=== PATIENT | male | born 1975 | race Caucasian/White ===

== ENCOUNTER 2016-11-18 06:51 | Emergency (ER) | payer BC, OTHER ==
--- NOTE | 2016-11-18 07:12 | PDOC ---
History of Present Illness - General History Source: Patient Exam Limitations: No Limitations - History of Present Illness Initial Comments: 11/18/16 07:35 The patient is a 41 year old male, with a significant past medical history of paroxysmal AFIB and HTN, who presents to the emergency department with palpitations, lightheadedness and chest tightness since 2:30 am. He states that he woke up with these symptoms. He denies drinking any coffee or beer but notes that he did have a Kiya bar last night as well as a snapple ice tea. He states that this does happen to him about once a year. He also states that he had an EKG done 3 months ago that was normal and a recent nuclear stress test that was within normal limits. He notes that he takes a baby aspirin daily. The patient denies shortness of breath, headache, fever, chills, nausea, vomit, diarrhea and constipation. Allergies: Penicillin, naproxen Past surgical history: None reported Social history: Smokes hookah. No drug or alcohol use. PMD - Dr. Elpidio Mccauley Pest Control Specialist - Dr. Joya <David Grossman - Last Filed: 11/18/16 10:12> <Jay Kirby - Last Filed: 11/18/16 12:37> - General Chief Complaint: Irregular Heart Beat Stated Complaint: PALPITATIONS Time Seen by Provider: 11/18/16 07:11 Past History <David Grossman - Last Filed: 11/18/16 10:12> - Past Medical History Cardiac Disorders: Yes (atrial fibrillation) HTN: Yes - Psycho/Social/Smoking Cessation Hx Anxiety: No Suicidal Ideation: No Smoking Status: No Smoking History: Never smoked Have you smoked in the past 12 months: No Number of Cigarettes Smoked Daily: 1 Hx Alcohol Use: No Drug/Substance Use Hx: No Substance Use Type: None Hx Substance Use Treatment: No <Jay Kirby - Last Filed: 11/18/16 12:37> - Past Medical History Allergies/Adverse Reactions: Allergies Allergy/AdvReac Type Severity Reaction Status Date / Time Penicillins Allergy Mild Itching Verified 11/18/16 07:11 naproxen [From Naprosyn] Allergy Hives Verified 11/18/16 07:11 Home Medications: Ambulatory Orders Metoprolol Succinate [Toprol XL -] 25 mg PO DAILY 02/09/14 Aspirin [ASA -] 81 mg PO DAILY #30 tab.chew 02/10/14 Famotidine [Pepcid] 20 mg PO DAILY #10 tablet 05/05/15 Review of Systems - Review of Systems Constitutional: No: Chills, Fever Respiratory: No: Cough, Shortness of Breath Cardiac (ROS): Yes: Chest Pain, Lightheadedness, Palpitations. No: Edema, Syncope ABD/GI: No: Nausea, Vomiting Neurological: No: Headache All Other Systems: Reviewed and Negative <Jay Kirby - Last Filed: 11/18/16 12:37> *Physical Exam - Vital Signs Last Vital Signs Temp Pulse Resp BP Pulse Ox 98.0 F 134 H 18 118/69 100 11/18/16 07:00 11/18/16 07:00 11/18/16 07:00 11/18/16 07:00 11/18/16 07:00 - Physical Exam Comments: 11/18/16 07:35 GENERAL: The patient is awake, alert, and fully oriented, in no acute distress. HEAD: Normal with no signs of trauma. EYES: Pupils equal, round and reactive to light, extraocular movements intact, sclera anicteric, conjunctiva clear with no pallor. ENT: Ears normal, nares patent, oropharynx clear without exudates. Moist mucous membranes. NECK: Normal range of motion, supple without lymphadenopathy, JVD, or masses. LUNGS: Breath sounds equal, clear to auscultation bilaterally. No wheeze/ crackles. HEART: (+) Irregularly irregular. Tachycardia. Normal S1 and S2 without murmur or rub. ABDOMEN: Soft/nontender/nondistended. BS wnl. No guarding or rebound. No palpable masses. No hepatosplenomegaly. EXTREMITIES: Normal range of motion, no edema. No clubbing or cyanosis. No cords , erythema, or tenderness. NEUROLOGICAL: Cranial nerves II through XII grossly intact. Normal speech, normal gait. PSYCH: Normal mood, normal affect. SKIN: Warm, Dry, normal turgor, no rashes or lesions noted. <David Grossman - Last Filed: 11/18/16 10:12> Heart Score/ECG Review #1 ECG reviewed & interpreted by me at: 06:57 Compared to previous ECG there are: No significant change (sinus in the past) 11/18/16 08:01 Atrial fibrillation with rapid ventricular response at 134, nonspecific T-wave abnormality in leads 3 and aVF, otherwise no acute ischemic changes. #2 ECG reviewed & interpreted by me at: 08:17 11/18/16 08:36 Afib at 88. inferior T wave changes resolved, likely rate-related. no acute ischemic changes <Jay Kirby - Last Filed: 11/18/16 12:37> ED Treatment Course - LABORATORY CBC & Chemistry Diagram: 11/18/16 07:28 11/18/16 07:28 - RADIOLOGY Radiograph Interpretation: 11/18/16 09:17 Chest X-Ray Reviewed by: Dr. Silvino Cid Impression: Normal chest <David Grossman - Last Filed: 11/18/16 10:12> - LABORATORY CBC & Chemistry Diagram: 11/18/16 07:28 11/18/16 07:28 <Jay Kirby - Last Filed: 11/18/16 12:37> Medical Decision Making - Medical Decision Making 11/18/16 10:12 Dr. Joya was called regarding the patient at 9:22am. Dr. Joya saw the patient in the ED at 9:50am [phone] <David Grossman - Last Filed: 11/18/16 10:12> - Critical Care Time Total Critical Care Time (minutes): 30 Critical Care Statement: The care of this patient involved high complexity decision making to prevent further life threatening deterioration of the patient 's condition and/or to evalute & treat vital organ system(s) failure or risk of failure. - Medical Decision Making 11/18/16 08:02 A portion of this note was documented by scribe services under my direction. I have reviewed the details of the note, within reason, and agree with the documentation with the following case summary and management plan written by me. 41-year-old male with no significant past medical history other than paroxysmal A. fib maintained on daily baby aspirin and metoprolol presents with symptomatic atrial fibrillation. Patient was in his usual state of normal health , no recent infections or ingestions, was awoken from sleep at 2:30 AM with palpitations and chest tightness that resolved after taking metoprolol, reoccurred around 6:30 AM so he presents for evaluation. Complained of mild chest tightness and lightheadedness, no shortness of breath. No recent PE risk factors, no recent dehydration, no recent infections, no increased caffeine intake. Had a normal nuclear stress test one year ago, at baseline has unlimited exercise tolerance. No other ACS risk factors. Heart rate ranges from 110 to 1:30, blood pressure 125/70, O2 sat normal. Exam as noted 41-year-old male with history of paroxysmal A. fib presents with atrophic fibrillation and rapid ventricular response, blood pressure stable. Patient was placed on monitor, EKG obtained, and IV access started. Patient was given diltiazem 10 mg IV push with rate control to the 70s and resolution of all symptoms. Repeat EKG Check labs including troponin IV fluid hydration, chest x-ray Oral dose of diltiazem Will discuss disposition with Dr. Joya, could be candidate for cardioversion if he does not do so spontaneously 11/18/16 10:17 Remains rate controlled in the 70s, blood pressure normal, asymptomatic. Labs are within normal limits, including electrolytes and troponin. Chest x-ray is clear. Seen by patient's ship yard electrical person, Dr. Joya he, in the ED. Agrees with management, recommends additional dose of his oral metoprolol, will monitor for 2 more hours and then discharged if remains rate controlled. Given Wyatt score of 0, can continue his aspirin and follow-up as outpatient for his paroxysmal A. fib. 11/18/16 12:33 Still in atrial fibrillation with rate is in the 70s, feels well with all symptoms resolved, wants to go home and follow-up with Dr. Dr. Joya in the office as planned. Understands return criteria. <Jay Kirby - Last Filed: 11/18/16 12:37> *DC/Admit/Observation/Transfer - Attestations Scribe Attestion: 11/18/16 07:36 Documentation prepared by David Grossman, acting as medical sales representative for Jay Kirby MD <David Grossman - Last Filed: 11/18/16 10:12> <Jay Kirby - Last Filed: 11/18/16 12:37> Diagnosis at time of Disposition: Atrial fibrillation with RVR - Discharge Dispostion Disposition: HOME Condition at time of disposition: Improved - Referrals Referrals: Elpidio Mccauley MD [Primary Care Provider] - John Paul Joya MD [Staff Physician] - - Patient Instructions Printed Discharge Instructions: DI for Atrial Fibrillation Additional Instructions: Activity as tolerated. Stay hydrated. Avoid caffeine as discussed. Continue metoprolol as previously prescribed. Continue your medications as previously prescribed by your physician, particularly metoprolol and aspirin. You should follow up with Dr. Simpson as soon as possible regarding today' s emergency department visit. Return to the emergency department for any new or concerning symptoms, particularly persistent palpitations, chest pain or difficulty breathing, lightheadedness or passing out.
[2016-11-18 07:21] VITALS: BMI 30.4
[2016-11-18] MEDS ORDERED: dilTIAZem HCL 125 MG/25 ML - 25 ML VIAL ONE (07:24)
[2016-11-18] MEDS ORDERED: SODIUM CHLORIDE 1,000 ML IV ONE (07:29)
[2016-11-18] MEDS ORDERED: dilTIAZem HCL 50 MG/10 ML - 10 ML VIAL IVPUSH ONE (07:29)
[2016-11-18] MEDS ORDERED: dilTIAZem HCL 30 MG TABLET (FP) PO ONE (07:54)
[2016-11-18 08:03] LABS: BASOPHIL 0.5 % (0-2.0); EOSINOPHIL 1.3 % (0-4.5); MCHC 32.3 g/dl (32.0-35.9); MEAN CELL VOLUME 77.6 fl (80-96); MEAN PLT VOLUME 8.5 fl (7.5-11.1); NEUTROPHILS 65.7 % (42.8-82.8); PLATELET COUNT 139 K/MM3 (134-434); RDW 15.1 % (11.9-15.9); WHITE BLOOD COUNT 5.5 K/mm3 (4.0-10.0)
[2016-11-18] MEDS ORDERED: dilTIAZem HCL 30 MG TABLET (FP) ONE (08:16)
[2016-11-18 08:33] LABS: INR 1.12 (0.82-1.09); PROTHROMBIN TIME (PATIENT) 12.4 SEC (9.98-11.88)
[2016-11-18 08:36] LABS: ACTIVATED PTT 34.7 SECONDS (26.9-34.4)
[2016-11-18 08:47] LABS: ALBUMIN 3.6 g/dl (3.4-5.0); ANION GAP 8 (8-16); BILIRUBIN,TOTAL 0.8 mg/dL (0.2-1.0); CALCIUM 8.9 mg/dL (8.5-10.1); CO2 29 mmol/L (21-32); CREATININE 0.9 mg/dL (0.7-1.3); GLUCOSE,RANDOM 74 mg/dL (74-106); SGOT/AST 14 U/L (15-37); SGPT/ALT 17 U/L (12-78); TOT PROT 6.9 g/dl (6.4-8.2)
[2016-11-18 08:49] LABS: ALK PHOS 71 U/L (45-117); TROPONIN I < 0.02 ng/ml (0.00-0.05)
[2016-11-18] MEDS ORDERED: ENOXAPARIN NA (PORCINE) 100 MG/1 ML DISP.SYRIN SQ ONE ×2 (09:20→09:32)
[2016-11-18] MEDS ORDERED: METOPROLOL SUCCINATE 25 MG TAB.SR.24H (FP) PO ONE (10:09)
--- NOTE | 2016-11-18 10:09 | CON.CARD ---
Cardiology Consult (text) - Consultation Consultation Note: Cardiology Consult 41M well known to me from office with PAF ([id number] score of 0) on Toprol 25 and ASA; h/o gastric bypass one year ago presents to ER with palpitations since 2am found to be in AF w/ RVR. He denies chest pain, SOB. No recent prolonged travel. No edema or CHF symptoms. No recent infections, no fever or chills. In ER given IV cardizem with heart rate now in 80s in AF and asx. He wants to go home to attend his son's graduation [facility]. ALL: PCN, Naproxen FH: Brother with DM and CAD SH: , smokes Hookah Physical Exam: Heart rate currently in 80s in AF. BP 160/90 Anicteric Neck: No bruits. CV: S1,2. RRR. No murmurs Chest: CTA b/l. No rales or wheezing Abd: soft, NT Ext: No edema Laboratory Tests C 11/18/16 11/18/16 11/18/16 07:28 07:28 07:28 WBC 5.5 Hgb 17.0 H D Hct 52.6 H D Plt Count 139 INR 1.12 PTT (Actin FS) 34.7 H Sodium 143 Potassium 3.9 BUN 15 D Creatinine 0.9 Creat Clearance w eGFR > 60 AST 14 L ALT 17 D Alkaline Phosphatase 71 Creatine Kinase 86 Troponin I < 0.02 IMP: PAF w/ RVR now rate controlled. CHADS2 Vasc = O Normal LV function REC: 1. Give Toprol XL 25mg x 1 now and increase daily dose to 50mg daily. 2. Patient's CHADS score is 0, can be maintained on ASA therapy. 3. If asx and rate controlled can be discharged to f/u in office tomorrow. I have advised him to have an ablation several times, and have referred him to EP. Will address this again as this is at least his 3rd episode.
[2016-11-18] MEDS ORDERED: METOPROLOL TARTRATE 25 MG TABLET (FP) PO ONE (10:10)
[2016-11-18] MEDS ORDERED: METOPROLOL TARTRATE 25 MG TABLET (FP) ONE (10:13)
[2016-11-18 12:37] VITALS: BP 126/69; PULSE 90; TEMP 97.4
--- NOTE | 2016-11-18 14:39 | EKG ---
Test Reason : Blood Pressure : / mmHG Vent. Rate : 088 BPM Atrial Rate : 326 BPM P-R Int : 000 ms QRS Dur : 090 ms QT Int : 352 ms P-R-T Axes : 000 035 021 degrees QTc Int : 425 ms ATRIAL FIBRILLATION ABNORMAL ECG WHEN COMPARED WITH ECG OF 18-NOV-2016 06:57, VENT. RATE HAS DECREASED BY 46 BPM Confirmed by WENDY MCMAHON MD ([id number]) on 11/18/2016 2:38:42 PM Referred By: Confirmed By:WENDY MCMAHON MD
== END 2016-11-18 12:39 | disposition home or self-care (01) ==
LOC: JER 06:51
PROC: 3E033GC Introduction of Other Therapeutic Substance into Peripheral Vein, Percutaneous Approach (ICD-10-PCS; principal; 2016-11-18)
PROC: 3E023GC Introduction of Other Therapeutic Substance into Muscle, Percutaneous Approach (ICD-10-PCS; 2016-11-18)
PROC: 3E0337Z Introduction of Electrolytic and Water Balance Substance into Peripheral Vein, Percutaneous Approach (ICD-10-PCS; 2016-11-18)
DX: I48.0 Paroxysmal atrial fibrillation (principal); Z79.01 Long term (current) use of anticoagulants; I10 Essential (primary) hypertension
CPT/HCPCS: 36415; 71010-TC; 80053; 82550; 83735; 84484; 85025; 85610; 85730; 93005; 93010; 99284-25

== ENCOUNTER 2017-07-02 08:55 | Observation (INO) | payer BC, OTHER ==
[2017-07-02 09:25] VITALS: BMI 29.2
--- NOTE | 2017-07-02 09:40 | PDOC ---
History of Present Illness - General History Source: Patient Exam Limitations: No Limitations - History of Present Illness Initial Comments: 07/02/17 11:08 The patient is a 42 year old male, with a significant past medical history of paroxysmal afib on ASA and HTN, who presents to the emergency department s/p syncopal episode early this morning. The patient reports feeling as though he was going into afib last night after smoking hookah. He notes later this morning waking up, urinating and feeling lightheaded followed by a brief 1 second LOC. He reports hitting his head and bruising his right eye after the fall. He also reports a mild global headache from the fall. He also notes mild CP this morning with transient radiation into his LUE. Yesterday patient states being in his normal state of health with no fever, illness, or change in eating habits. Denies recent travel or immobility. He denies any recent fevers, chills , or dizziness. He denies any recent nausea, vomit, diarrhea or constipation. He denies any recent chest pain or shortness of breath. He denies any recent dysuria, frequency, urgency or hematuria. Allergies: Penicillin and naproxen Past surgical history: None reported. Social History: Current hookah smoker. Denies EtOH use and recreational drug use. Primary Care Physician: Microsoft Office Instructor: <Martir Stewart - Last Filed: 07/02/17 11:08> <Luis Carlos De Oliveira - Last Filed: 07/02/17 14:44> - General Chief Complaint: Syncope/Near Syncope Stated Complaint: FALL Time Seen by Provider: 07/02/17 09:20 Past History <Martir Stewart - Last Filed: 07/02/17 11:08> - Past Medical History Cardiac Disorders: Yes (atrial fibrillation) COPD: No HTN: Yes - Surgical History Abdominal Surgery: Yes (gastric sleeve) - Suicide/Smoking/Psychosocial Hx Smoking Status: No Smoking History: Never smoked Have you smoked in the past 12 months: No Number of Cigarettes Smoked Daily: 1 Information on smoking cessation initiated: No 'Breaking Loose' booklet given: 11/18/16 Hx Alcohol Use: No Drug/Substance Use Hx: No Substance Use Type: None Hx Substance Use Treatment: No <Luis Carlos De Oliveira - Last Filed: 07/02/17 14:44> - Past Medical History Allergies/Adverse Reactions: Allergies Allergy/AdvReac Type Severity Reaction Status Date / Time Penicillins Allergy Mild Itching Verified 07/02/17 09:15 naproxen [From Naprosyn] Allergy Hives Verified 07/02/17 09:15 Home Medications: Ambulatory Orders Metoprolol Succinate [Toprol XL -] 25 mg PO DAILY 02/09/14 Aspirin [ASA -] 81 mg PO DAILY #30 tab.chew 02/10/14 Famotidine [Pepcid] 20 mg PO DAILY #10 tablet 05/05/15 Review of Systems - Review of Systems Able to Perform ROS?: Yes Comments:: 07/02/17 11:08 GENERAL/CONSTITUTIONAL: No fever or chills. No weakness. HEAD, EYES, EARS, NOSE AND THROAT: No change in vision. No ear pain or discharge. No sore throat. GASTROINTESTINAL: No nausea, vomiting, diarrhea or constipation. GENITOURINARY: No dysuria, frequency, or change in urination. CARDIOVASCULAR: No chest pain or shortness of breath. RESPIRATORY: No cough, wheezing, or hemoptysis. MUSCULOSKELETAL: No joint or muscle swelling or pain. No neck or back pain. SKIN: No rash NEUROLOGIC: +LOC, headache, head trauma. No vertigo, or change in strength/ sensation. ENDOCRINE: No increased thirst. No abnormal weight change. HEMATOLOGIC/LYMPHATIC: No anemia, easy bleeding, or history of blood clots. ALLERGIC/IMMUNOLOGIC: No hives or skin allergy. <Martir Stewart - Last Filed: 07/02/17 11:08> *Physical Exam - Vital Signs Last Vital Signs Temp Pulse Resp BP Pulse Ox 98.4 F 78 18 102/59 100 07/02/17 09:15 07/02/17 09:15 07/02/17 09:15 07/02/17 09:15 07/02/17 09:15 - Physical Exam Comments: 07/02/17 11:08 GENERAL: Awake, alert, and fully oriented, in no acute distress EYES: PERRLA, EOMI, sclera anicteric, conjunctiva clear FACE: Large swelling over the right zygoma with ecchymosis underneath right orbit. Minimal tenderness with no bony deformities. No loose teeth. Moist mucosa NECK: Normal ROM, supple, no lymphadenopathy, JVD, or masses LUNGS: Breath sounds equal, clear to auscultation bilaterally. No wheezes, and no crackles HEART: Regular rate and rhythm, normal S1 and S2, no murmurs, rubs or gallops ABDOMEN: Soft, nontender, normoactive bowel sounds. No guarding, no rebound. No masses EXTREMITIES: Normal range of motion, no edema. No clubbing or cyanosis. No cords , erythema, or tenderness BACK: No midline spinal tenderness in cervical/thoracic/lumbar region NEUROLOGICAL: Normal speech, cranial nerves intact, negative pronator drift, 5/ 5 strength in all 4 extremities, normal sensation to light touch in all 4 extremities, normal cerebellar exam, normal reflexes and tone. Gait deferred SKIN: Warm, Dry, normal turgor, no rashes or lesions noted. <Martir Stewart - Last Filed: 07/02/17 11:08> - Vital Signs Last Vital Signs Temp Pulse Resp BP Pulse Ox 98.4 F 78 18 102/59 100 07/02/17 09:15 07/02/17 09:15 07/02/17 09:15 07/02/17 09:15 07/02/17 09:15 <Luis Carlos De Oliveira - Last Filed: 07/02/17 14:44> ED Treatment Course - LABORATORY CBC & Chemistry Diagram: 07/02/17 10:00 07/02/17 10:00 - ADDITIONAL ORDERS Additional order review: Laboratory Results 07/02/17 07/02/17 10:00 10:00 D-Dimer < 200 TSH Cancelled 07/02/17 10:00 RBC 6.23 H MCV 77.4 L MCHC 32.1 RDW 14.8 MPV 8.1 Neutrophils % 76.1 Lymphocytes % 17.7 D Monocytes % 5.3 Eosinophils % 0.3 Basophils % 0.6 <Martir Stewart - Last Filed: 07/02/17 11:08> - LABORATORY CBC & Chemistry Diagram: 07/02/17 10:00 07/02/17 10:00 - RADIOLOGY Radiology Studies Ordered: Category Date Time Status CHEST PA & LAT [RAD] Stat Radiology 07/02/17 09:23 Ordered <Luis Carlos De Oliveira - Last Filed: 07/02/17 14:44> Medical Decision Making - Medical Decision Making 07/02/17 11:47 42-year-old male with a history of paroxysmal A. fib on aspirin who presents emergency Department with a syncopal episode overnight as well as facial trauma. Vitals here are unremarkable. Exam remarkable for a large hematoma over the right zygomatic arch but no bony deformities. Patient is not in A. fib on exam today. Remainder exam is within normal limits.Differential includes but is not limited to orthostatic syncope in the setting of taking an extra metoprolol pill when he began to experience A. fib symptoms last night versus vasovagal syncope as syncope occurred after voiding versus pulmonary embolism versus arrhythmia. 07/02/17 14:43 Labs including d-dimer and troponin unremarkable. CT head and facial bones with no fractures, just swelling. Patient evaluated by lure maker Dr. Tolliver and will be admitted for echo and cardiac workup. Case discussed with . Case discussed in detail with admitting physician including history, physical exam and ancillary studies. Admitting physician has assumed care for the patient, will follow all pending diagnostics and will complete the evaluation and treatment. <Luis Carlos De Oliveira - Last Filed: 07/02/17 14:44> *DC/Admit/Observation/Transfer - Attestations Scribe Attestion: 07/02/17 11:09 Documentation prepared by Martir Stewart, acting as nuclear medical technologist for Luis Carlos De Oliveira MD, MD/DO. <Martir Stewart - Last Filed: 07/02/17 11:08> - Discharge Dispostion Admit: Yes - Attestations Physician Attestion: 07/02/17 14:44 I, Dr. Luis Carlos De Oliveira MD, attest that this document has been prepared under my direction and personally reviewed by me in its entirety. I further attest, that it accurately reflects all work, treatment, procedures and medical decision -making performed by me. <Luis Carlos De Oliveira - Last Filed: 07/02/17 14:44> Diagnosis at time of Disposition: Syncope and collapse - Discharge Dispostion Condition at time of disposition: Stable - Referrals Referrals: Elpidio Mccauley MD [Primary Care Provider] -
[2017-07-02 10:34] LABS: BASO % 0.6 % (0-2.0); EOS % 0.3 % (0-4.5); HEMATOCRIT 48.2 % (35.4-49); HEMOGLOBIN 15.5 GM/dL (11.7-16.9); LYMPH % 17.7 % (8-40); MCH 24.9 pg (25.7-33.7); MCHC 32.1 g/dl (32.0-35.9); MEAN CELL VOLUME 77.4 fl (80-96); MEAN PLT VOLUME 8.1 fl (7.5-11.1); MONO % 5.3 % (3.8-10.2); NEUT % 76.1 % (42.8-82.8); PLATELET COUNT 166 K/MM3 (134-434); RBC 6.23 M/mm3 (4.00-5.60); RDW 14.8 % (11.9-15.9); WHITE BLOOD COUNT 5.3 K/mm3 (4.0-10.0)
--- NOTE | 2017-07-02 10:56 | EKG ---
Test Reason : Blood Pressure : / mmHG Vent. Rate : 066 BPM Atrial Rate : 066 BPM P-R Int : 168 ms QRS Dur : 080 ms QT Int : 376 ms P-R-T Axes : 041 036 027 degrees QTc Int : 394 ms NORMAL SINUS RHYTHM NORMAL ECG WHEN COMPARED WITH ECG OF 18-NOV-2016 08:17, SINUS RHYTHM HAS REPLACED ATRIAL FIBRILLATION Confirmed by JULIO MILLER MD ([id number]) on 07/02/2017 10:56:29 AM Referred By: Confirmed By:JULIO MILLER MD
[2017-07-02 11:25] LABS: ALBUMIN 3.5 g/dl (3.4-5.0); ANION GAP 7 (8-16); BLOOD UREA NITROGEN 19 mg/dL (7-18); CALCIUM 8.7 mg/dL (8.5-10.1); CHLORIDE 107 mmol/L (98-107); CO2 27 mmol/L (21-32); GLUCOSE,RANDOM 74 mg/dL (74-106); SODIUM 141 mmol/L (136-145)
[2017-07-02 11:30] LABS: ALK PHOS 63 U/L (45-117); BILIRUBIN,TOTAL 0.7 mg/dL (0.2-1.0); CREATININE 0.9 mg/dL (0.7-1.3); SGPT/ALT 18 U/L (12-78); TOT PROT 6.6 g/dl (6.4-8.2)
[2017-07-02 11:36] LABS: POTASSIUM 4.4 mmol/L (3.5-5.1)
--- NOTE | 2017-07-02 11:43 | CON.CARD ---
Consult Consult Specialty:: Cardiology Referred by:: ER Reason for Consultation:: Syncope, Afib - History of Present Illness Chief Complaint: Syncope History of Present Illness: 42 year old man with a h/o HTN, Pafib on ASA and Toprol, came to ER with episode of syncope. Pt states that he smoked hookah last night (which has triggered his afib in the past) and he felt himself go into Afib. He then took and extra dose of Toprol before going to sleep. states he woke up approx 4am and went to the bathroom. he was feeling very groggy at that time. On his wake back from the bathroom he felt very lightheaded then lost consciousness and fell to the ground in his bedroom hitting the right side of his face. His woke up when he fell and he regained consciousness immediately and felt back to baseline. Of note he did not feel his afib when he woke up at 4am. denies any prior episodes of syncope or near syncope. - History Source History Provided By: Patient, Medical Record Limitations to Obtaining History: No Limitations - Past Medical History Cardio/Vascular: Yes: AFIB - Past Surgical History Past Surgical History: Yes: None - Alcohol/Substance Use Hx Alcohol Use: No History of Substance Use: reports: None - Smoking History Smoking history: Never smoked Have you smoked in the past 12 months: No Aproximately how many cigarettes per day: 1 - Social History Usual Living Arrangement: With Spouse ADL: Independent History of Recent Travel: No Home Medications - Allergies Allergies/Adverse Reactions: Allergies Allergy/AdvReac Type Severity Reaction Status Date / Time Penicillins Allergy Mild Itching Verified 07/02/17 09:15 naproxen [From Naprosyn] Allergy Hives Verified 07/02/17 09:15 - Home Medications Home Medications: Ambulatory Orders Metoprolol Succinate [Toprol XL -] 25 mg PO DAILY 02/09/14 Aspirin [ASA -] 81 mg PO DAILY #30 tab.chew 02/10/14 Famotidine [Pepcid] 20 mg PO DAILY #10 tablet 05/05/15 Family Disease History - Family Disease History Family Disease History: Heart Disease: Father ([place] in 70s), CA: Mother, Other: Father, Brother (afib) Review of Systems - Review of Systems Constitutional: denies: No Symptoms, Chills, Diaphoresis, Fever, Lethargy, Loss of Appetite, Malaise, Night Sweats, Unintentional Wgt. Loss, Weakness, Other Eyes: denies: No Symptoms, Blind Spots, Blurred Vision, Double Vision, Eye Pain , Floaters, Photophobia, Recent Change in Vision, Other HENT: denies: No Symptoms, Difficult Swallowing, Ear Discharge, Ear Pain, Epistaxis, Gingival Bleeding, Hearing Loss, Mouth Swelling, Nasal Congestion, Ocular Prosthesis, Throat Pain, Toothache, Ringing in Ears, Other Neck: denies: No Symptoms, Decreased ROM, Lumps, Pain on Movement, Stiffness, Swollen Glands, Tenderness, Other Cardiovascular: reports: Palpitations. denies: No Symptoms, Chest Pain, Edema, Shortness of Breath, Other Respiratory: denies: No Symptoms, Cough, Exercise Intolerance, Hemoptysis, Orthopnea, PND, Snoring, SOB, SOB on Exertion, Wheezing, Other Gastrointestinal: denies: No Symptoms, Abdominal Pain, Bloating, Constipation, Diarrhea, Dysphagia, Indigestion, Melena, Nausea, Rectal Bleeding, Vomiting, Vomiting Blood, Other Genitourinary: denies: No Symptoms, Burning, Discharge, Dysuria, Flank Pain, Frequency, Hematuria, Incontinence, Lesions, Menses, Pain, Testicular Mass, Testicular Pain, Testicular Swelling, Urgency, Vaginal Bleeding, Other Breasts: denies: No Symptoms Reported, See HPI, Breast Implants, Discharge from Nipple, Lumps, Pain, Skin Changes, Other Musculoskeletal: denies: No Symptoms, Back Pain, Crepitus, Decreased ROM, Extremity Pain, Joint Pain, Joint Swelling, Muscle Pain, Muscle Cramps, Muscle Weakness, Other Integumentary: denies: No Symptoms, Blister, Bruising, Change in Color, Eczema, Erythema, Incision, Lesions, Lump, Pallor, Pruritis, Rash, Wound, Other Neurological: reports: Dizziness, Headache, Syncope. denies: No Symptoms, Change in LOC, Change in Speech, Confusion, Incoordination, Numbness, Parasthesia, Pre-Existing Deficit, Seizure, Tremors, Unsteady Gait, Weakness, Other Endocrine: denies: No Symptoms, Excessive Sweating, Flushing, Increased Hunger, Increased Thirst, Intolerance to Cold, Intolerance to Heat, Unexplained Weight Gain, Unexplained Weight Loss, Other Hematology/Lymphatic: denies: No Symptoms, Easily Bruised, Excessive Bleeding, Swollen Glands, Other Psychiatric: denies: No Symptoms, Altered Sleep Pattern, Anxiety, Depression, Hallucinations, Panic, Paranoia, Suicidal, Other Vital Signs: Vital Signs Temperature 98.4 F 07/02/17 09:15 Pulse Rate 78 07/02/17 09:15 Respiratory Rate 18 07/02/17 09:15 Blood Pressure 102/59 07/02/17 09:15 O2 Sat by Pulse Oximetry (%) 100 07/02/17 09:15 Constitutional: Yes: Well Nourished, No Distress, Calm Eyes: Yes: Conjunctiva Clear, EOM Intact HENT: Yes: Other (Right sided facial contusion) Neck: Yes: WNL, Supple, Trachea Midline Respiratory: Yes: WNL, Regular, CTA Bilaterally. No: Rales, Rhonchi, Wheezes Gastrointestinal: Yes: WNL, Normal Bowel Sounds, Soft. No: Distention, Tenderness Renal/: Yes: WNL Cardiovascular: Yes: Regular Rate and Rhythm. No: Bradycardia, Tachycardia, Pulse Irregular, Gallop, Rub, Varicosities JVD: No Carotid Bruit: No PMI: Non-Displaced Heart Sounds: Yes: S1, S2. No: Split S2, S3, S4, Clicks, Gallop, Rub, Bruit Murmur: No: Systolic Murmur, Diastolic Murmur Musculoskeletal: Yes: WNL Extremities: Yes: WNL Edema: No Peripheral Pulses WNL: Yes Peripheral Pulses: 2+ Left Doralis Pedis, 2+ Right Dorsalis Pedis Integumentary: Yes: WNL Neurological: Yes: WNL, Alert, Oriented, Cran Nerves II-XII Intact ...Motor Strength: WNL Psychiatric: Yes: WNL, Alert, Oriented - Other Data Labs, Other Data: CBC, BMP 07/02/17 10:00 07/02/17 10:00 Troponin, BNP 07/02/17 07/02/17 10:00 10:00 Troponin I < 0.02 B-Natriuretic Peptide Cancelled Troponin, BNP 07/02/17 07/02/17 10:00 10:00 Troponin I < 0.02 B-Natriuretic Peptide Cancelled ekg-nsr 66bpm, no sig ST abnl Echo: Report Reviewed Imaging - Results Chest X-ray: Report Reviewed, Image Reviewed EKG: Report Reviewed, Image Reviewed Other: Report Reviewed, Image Reviewed Assessment/Plan 42 year old man with a h/o HTN, Pafib on ASA and Toprol, came to ER with episode of syncope. Pt states that he smoked hookah last night (which has triggered his afib in the past) and he felt himself go into Afib. He then took and extra dose of Toprol before going to sleep. states he woke up approx 4am and went to the bathroom. he was feeling very groggy at that time. On his wake back from the bathroom he felt very lightheaded then lost consciousness and fell to the ground in his bedroom hitting the right side of his face. His woke up when he fell and he regained consciousness immediately and felt back to baseline. Of note he did not feel his afib when he woke up at 4am. denies any prior episodes of syncope or near syncope. Syncope-uncertain etiology -likely orthostatic hypotension given the clinical scenario in the setting of taking extra metoprolol before going to sleep -cannot rule out a conversion pause from AFib to NSR, he is currently in NSR -monitor on tele 24 hours -check echo and carotid doppler -check orthostatic BP -mildly elevated bun/creat ratio suggest mild intravascular depletion -encourage po fluid intake -if no events overnight pt can likely be discharged home tomorrow from cardiac standpoint Afib-paroxsymal, chads score 1 -cont ASA for now -cont toprol at home dose -currently nsr HTN-low normal -cont toprol for Afib
[2017-07-02 11:50] LABS: N-TERMINAL BNP 530.88 pg/ml (5-125)
[2017-07-02 12:34] LABS: SGOT/AST 13 U/L (15-37)
--- NOTE | 2017-07-02 15:11 | HP ---
Admitting History and Physical - Primary Care Physician PCP: Elpidio Mccauley - Admission History of Present Illness: 07/02/17 11:08 The patient is a 42 year old male, with a significant past medical history of paroxysmal afib on ASA and HTN, who presents to the emergency department s/p syncopal episode early this morning. The patient reports feeling as though he was going into afib last night after smoking hookah. per patient he took extra dose of metoprolol then went back to bed. He notes later this morning waking up , urinating and feeling lightheaded followed by a brief 1 second LOC. He reports hitting his head and bruising his right eye after the fall. He also reports a mild global headache from the fall. He also notes mild CP this morning with transient radiation into his LUE. Yesterday patient states being in his normal state of health with no fever, illness, or change in eating habits. Denies recent travel or immobility. He denies any recent fevers, chills , or dizziness. He denies any recent nausea, vomit, diarrhea or constipation. He denies any recent chest pain or shortness of breath. He denies any recent dysuria, frequency, urgency or hematuria. Allergies: Penicillin and naproxen Past surgical history: None reported. Social History: Current hookah smoker. Denies EtOH use and recreational drug use. Primary Care Physician: [place]: - Past Medical History Cardiovascular: Yes: AFIB - Past Surgical History Past Surgical History: Yes: None - Smoking History Smoking history: Never smoked Have you smoked in the past 12 months: No Aproximately how many cigarettes per day: 1 - Alcohol/Substance Use Hx Alcohol Use: No History of Substance Use: reports: None - Social History ADL: Independent History of Recent Travel: No Home Medications - Allergies Allergies/Adverse Reactions: Allergies Allergy/AdvReac Type Severity Reaction Status Date / Time Penicillins Allergy Mild Itching Verified 07/02/17 09:15 naproxen [From Naprosyn] Allergy Hives Verified 07/02/17 09:15 - Home Medications Home Medications: Ambulatory Orders Metoprolol Succinate [Toprol XL -] 25 mg PO DAILY 02/09/14 Aspirin [ASA -] 81 mg PO DAILY #30 tab.chew 02/10/14 Famotidine [Pepcid] 20 mg PO DAILY #10 tablet 05/05/15 Family Disease History - Family Disease History Family Disease History: Heart Disease: Father ([place] in 70s), [place]: Mother, Other: Father, Brother (afib) Review of Systems - Review of Systems Eyes: reports: Eye Pain, Other (ecchymosis and swelling in right periorbital area) Physical Examination Vital Signs: Vital Signs Temperature 98.4 F 07/02/17 09:15 Pulse Rate 71 07/02/17 14:13 Respiratory Rate 16 07/02/17 14:13 Blood Pressure 117/70 07/02/17 14:13 O2 Sat by Pulse Oximetry (%) 97 07/02/17 14:13 Constitutional: Yes: Calm Eyes: Yes: Other (periorbital swelling and ecchymosis) Cardiovascular: Yes: Regular Rate and Rhythm, S1, S2 Respiratory: Yes: CTA Bilaterally Gastrointestinal: Yes: Normal Bowel Sounds, Soft Edema: No Labs: CBC, BMP 07/02/17 10:00 07/02/17 10:00 Imaging - Results Cat Scan: Report Reviewed Problem List - Problems (1) Syncope and collapse Assessment/Plan: tele obs echo orthostatic BP BB asa cardio eval noted Code(s): R55 - SYNCOPE AND COLLAPSE (2) Atrial fibrillation with RVR Assessment/Plan: tele currently in NSR BB Code(s): I48.91 - UNSPECIFIED ATRIAL FIBRILLATION (3) Hematoma Assessment/Plan: ice pack for swelling Code(s): T14.8XXA - OTHER INJURY OF UNSPECIFIED BODY REGION, INITIAL ENCOUNTER
[2017-07-02] MEDS ORDERED: ACETAMINOPHEN 500 MG TABLET (FP) PO ONE (17:06)
[2017-07-02] MEDS ORDERED: ACETAMINOPHEN 325 MG TABLET (FP) ONE (17:06)
[2017-07-02] MEDS ORDERED: ACETAMINOPHEN 325 MG TABLET (FP) PO PRN (21:01)
[2017-07-03 07:17] LABS: BASO % 0.5 % (0-2.0); EOS % 1.5 % (0-4.5); HEMATOCRIT 44.8 % (35.4-49); HEMOGLOBIN 14.3 GM/dL (11.7-16.9); LYMPH % 33.9 % (8-40); MCH 24.7 pg (25.7-33.7); MCHC 31.9 g/dl (32.0-35.9); MEAN CELL VOLUME 77.5 fl (80-96); MEAN PLT VOLUME 8.5 fl (7.5-11.1); MONO % 6.7 % (3.8-10.2); NEUT % 57.4 % (42.8-82.8); PLATELET COUNT 144 K/MM3 (134-434); RBC 5.78 M/mm3 (4.00-5.60); WHITE BLOOD COUNT 4.8 K/mm3 (4.0-10.0)
[2017-07-03 07:21] LABS: ALBUMIN 3.4 g/dl (3.4-5.0); ALK PHOS 59 U/L (45-117); ANION GAP 7 (8-16); BILIRUBIN,TOTAL 0.6 mg/dL (0.2-1.0); BLOOD UREA NITROGEN 18 mg/dL (7-18); CALCIUM 7.9 mg/dL (8.5-10.1); CHLORIDE 109 mmol/L (98-107); CO2 26 mmol/L (21-32); CREATININE 0.9 mg/dL (0.7-1.3); GLUCOSE,RANDOM 69 mg/dL (74-106); POTASSIUM 3.9 mmol/L (3.5-5.1); SGOT/AST 7 U/L (15-37); SGPT/ALT 16 U/L (12-78); SODIUM 142 mmol/L (136-145)
--- NOTE | 2017-07-03 08:49 | PN ---
Progress Note, Physician Chief Complaint: feeling "fine" TELE: NSR - Current Medication List Current Medications: Active Medications Acetaminophen (Tylenol -) 650 mg PO Q6H PRN PRN Reason: PAIN OR FEVER Last Admin: 07/03/17 07:03 Dose: 650 mg Aspirin (Ecotrin -) 81 mg PO DAILY [facility] Metoprolol Succinate (Toprol Xl -) 25 mg PO DAILY [facility] - Objective Vital Signs: Vital Signs Temperature 97.9 F 07/03/17 07:00 Pulse Rate 67 07/03/17 07:00 Respiratory Rate 18 07/03/17 07:00 Blood Pressure 133/77 07/03/17 07:00 O2 Sat by Pulse Oximetry (%) 98 07/02/17 23:12 Constitutional: Yes: No Distress Cardiovascular: Yes: Regular Rate and Rhythm Respiratory: Yes: CTA Bilaterally Gastrointestinal: Yes: Soft Edema: No Neurological: Yes: Alert, Oriented Labs: CBC, BMP 07/03/17 05:35 07/03/17 05:35 Laboratory Tests 07/03/17 07/03/17 05:35 05:35 WBC 4.8 Hgb 14.3 Plt Count 144 Sodium 142 Potassium 3.9 BUN 18 Creatinine 0.9 - ....Imaging EKG: Image Reviewed (NSR) Assessment/Plan 42 year old man with a h/o HTN, Pafib on ASA and Toprol, came to ER with episode of syncope, possibly from resulting from extra dose of Metoprolol. Syncope-uncertain etiology -likely orthostatic hypotension given the clinical scenario in the setting of taking extra metoprolol before going to sleep -cannot rule out a conversion pause from AFib to NSR, he is currently in NSR -TELE: NSR - echo and carotid doppler WNL -mildly elevated bun/creat ratio suggest mild intravascular depletion -encourage po fluid intake -As work up is negative, he may be discharged with close outpatient f/u -wreath and [facility] maker plan is for AF ablation Afib-paroxsymal, chads score 1 -cont ASA for now; if need to hold for several days to allow hematoma to resolve , that can be done w/ low risk -cont toprol at home dose -currently nsr HTN-low normal -cont toprol for Afib
[2017-07-03] MEDS ORDERED: ASPIRIN COATED 81 MG TABLET.EC PO SCH (10:00)
[2017-07-03] MEDS ORDERED: METOPROLOL SUCCINATE 25 MG TAB.SR.24H (FP) PO SCH (10:00)
--- NOTE | 2017-07-03 10:34 | DS ---
Physical Examination Vital Signs: Vital Signs Temperature 97.9 F 07/03/17 07:00 Pulse Rate 67 07/03/17 07:00 Respiratory Rate 18 07/03/17 07:00 Blood Pressure 133/77 07/03/17 07:00 O2 Sat by Pulse Oximetry (%) 98 07/02/17 23:12 Constitutional: Yes: No Distress Eyes: Yes: WNL HENT: Yes: Other (right eye ecchymosis) Neck: Yes: WNL Cardiovascular: Yes: Pulse Irregular Respiratory: Yes: WNL Gastrointestinal: Yes: WNL ...Rectal Exam: Yes: WNL Renal/: Yes: WNL Breast(s): Yes: WNL Musculoskeletal: Yes: WNL Extremities: Yes: WNL Edema: No Peripheral Pulses WNL: Yes Integumentary: Yes: WNL Wound/Incision: Yes: Clean/Dry Neurological: Yes: WNL ...Motor Strength: WNL Psychiatric: Yes: WNL Labs: CBC, BMP 07/03/17 05:35 07/03/17 05:35 Discharge Summary Reason For Visit: SYNCOPE AND COLLAPSE Current Active Problems Hematoma (Acute) Syncope and collapse (Acute) Procedures: Principal: ct head Other Procedures: labs Hospital Course: cardiac workup will follow as out patient for cardiac ablation Condition: Stable - Instructions Diet, Activity, Other Instructions: low salt see cardiology 1 week Referrals: Elpidio Mccauley MD [Primary Care Provider] - Disposition: HOME - Home Medications Comprehensive Discharge Medication List: Ambulatory Orders Metoprolol Succinate [Toprol XL -] 25 mg PO DAILY 02/09/14 Aspirin [ASA -] 81 mg PO DAILY #30 tab.chew 02/10/14
[2017-07-03 11:15] VITALS: BP 136/79; PULSE 64; TEMP 98.2
== END 2017-07-03 11:51 | disposition home or self-care (01) ==
LOC: JER 08:55 → JERBED 14:44 → J4W 20:05
PROVIDERS: ADMIT Family Medicine; ATTEND Family Medicine
DX: R55 Syncope and collapse (principal); I48.0 Paroxysmal atrial fibrillation; I10 Essential (primary) hypertension; S05.11XA Contusion of eyeball and orbital tissues, right eye, initial encounter; W18.39XA Other fall on same level, initial encounter; Z91.81 History of falling; Y93.89 Activity, other specified; Y92.008 Other place in unspecified non-institutional (private) residence as the place of occurrence of the external cause
CPT/HCPCS: 36415; 70450-TC; 70486-TC; 71046-TC-FY; 80053; 83735; 83880; 84443; 84484; 85025; 85379; 93005; 93010; 93306-TC; 93880-TC; 99284-25; G0378